=== PATIENT | male | born 1950 | race Caucasian/White ===

== ENCOUNTER 2018-02-14 08:44 | Emergency (ER) | payer OTHER ==
[2018-02-14] MEDS: KETOROLAC 15 MG INJ IV (10:30)
[2018-02-14] MEDS: ONDANSETRON 4 MG INJ IV (10:30)
[2018-02-14 10:31] LABS: ADD MAN DIFF? NO
[2018-02-14] MEDS: morphine 4 MG/ML VIAL IV (10:31)
[2018-02-14] MEDS: SOD CHLORIDE 0.9% 1,000 ML IV (10:31)
[2018-02-14 10:35] LABS: WHITE BLOOD COUNT 5.8 10^3/ul (4.8-10.8)
[2018-02-14 10:35] LABS: BASOPHIL # 0.1 10^3/ul (0.0-0.1); BASOPHILS % 0.9 % (0.0-2.0); EOSINOPHILS # 0.1 10^3/ul (0.0-0.5); EOSINOPHILS % 1.4 % (0.0-7.0); HEMATOCRIT 47.4 % (42.0-52.0); HEMOGLOBIN 16.4 g/dl (14.0-18.0); LYMPHOCYTES # 1.1 10^3/ul (0.8-2.9); MEAN CORPUSCULAR HEMOGLOBIN 28.4 pg (29.0-33.0); MEAN CORPUSCULAR HGB CONC 34.6 g/dl (32.0-37.0); MEAN CORPUSCULAR VOLUME 82.1 fl (82.0-101.0); MEAN PLATELET VOLUME 10.7 fl (7.4-10.4); MONOCYTE # 0.6 10^3/ul (0.3-0.9); MONOCYTES % 10.6 % (0.0-11.0); NEUTROPHILS % 68.9 % (39.0-77.0); PLATELET COUNT 126 10^3/UL (140-415); POSITIVE DIFF @See below; RED BLOOD COUNT 5.77 10^6/ul (4.70-6.10); RED CELL DISTRIBUTION WIDTH 13.1 % (11.5-14.5)
[2018-02-14 10:37] LABS: ADD UMIC NO; UR ASCORBIC ACID NEGATIVE (NEGATIVE); UR BILIRUBIN (Dip) NEGATIVE (NEGATIVE); UR BLOOD (Dip) NEGATIVE (NEGATIVE); UR CLARITY CLEAR (CLEAR); UR COLOR YELLOW (YELLOW); UR GLUCOSE (Dip) 3+ mg/dL (NEGATIVE); UR KETONES (Dip) NEGATIVE (NEGATIVE); UR LEUKOCYTE ESTERASE (Dip) NEGATIVE Leu/ul (NEGATIVE); UR NITRITE (Dip) NEGATIVE (NEGATIVE); UR SPECIFIC GRAVITY (Dip) 1.022 (1.003-1.030); UR TOTAL PROTEIN (Dip) NEGATIVE (NEGATIVE); UR UROBILINOGEN (Dip) NEGATIVE (NEGATIVE)
[2018-02-14 10:53] LABS: ALANINE AMINOTRANSFERASE 33 IU/L (13-69); ALBUMIN 4.1 g/dl (3.3-4.9); ALBUMIN/GLOBULIN RATIO 1.17; ALKALINE PHOSPHATASE 142 IU/L (42-121); ANION GAP 18 (8-16); ASPARTATE AMINO TRANSFERASE 23 IU/L (15-46); BILIRUBIN,INDIRECT 0.7 mg/dl (0-1.1); BILIRUBIN,TOTAL 0.7 mg/dl (0.2-1.3); BLOOD UREA NITROGEN 11 mg/dl (7-20); CARBON DIOXIDE 26 mmol/L (21-31); CHLORIDE 103 mmol/L (97-110); CREATININE 0.67 mg/dl (0.61-1.24); GLUCOSE 232 mg/dl (70-220); LIPASE 57 U/L (23-300); POTASSIUM 4.6 mmol/L (3.5-5.1); SODIUM 142 mmol/L (135-144); TOTAL PROTEIN 7.6 g/dl (6.1-8.1)
[2018-02-14] MEDS ORDERED: LORAZEPAM 2 MG INJ (12:49)
[2018-02-14] MEDS: LORAZEPAM 2 MG INJ IV (13:00)
== END 2018-02-14 15:00 | disposition home or self-care (01) ==
LOC: E/R 08:44
DX: K59.00 Constipation, unspecified (principal); I10 Essential (primary) hypertension; E11.9 Type 2 diabetes mellitus without complications; Z79.84 Long term (current) use of oral hypoglycemic drugs
CPT/HCPCS: 36415; 74176; 80053; 81003; 83690; 85025; 87086; 96374; 96375; 99285-25

== ENCOUNTER 2018-04-09 15:38 | Emergency (ER) | payer SELFPAY, OTHER | END 2018-04-09 19:51 | disposition left against medical advice (07) | LOC: E/R 15:38 | DX: Z53.21 Procedure and treatment not carried out due to patient leaving prior to being seen by health care provider (principal) ==

== ENCOUNTER 2019-03-25 15:45 | Emergency (ER) | payer SELFPAY, OTHER | END 2019-03-25 19:14 | disposition left against medical advice (07) | LOC: E/R 15:45 | DX: Z53.21 Procedure and treatment not carried out due to patient leaving prior to being seen by health care provider (principal) | CPT/HCPCS: 93005 ==

== ENCOUNTER 2019-08-09 12:42 | Inpatient (IN) | payer OTHER ==
[2019-08-09] MEDS: CLOPIDOGREL 300 MG TAB PO (13:03)
[2019-08-09 13:07] LABS: ADD MAN DIFF? NO
[2019-08-09] MEDS: HEPARIN 1000 UNITS/ML 10 ML INJ IV (13:07)
[2019-08-09] MEDS: ASPIRIN 325 MG TAB PO (13:07)
[2019-08-09] MEDS: TICAGRELOR 90 MG TABLET PO (13:07)
[2019-08-09 13:09] LABS: BASOPHIL # 0.1 10^3/ul (0.0-0.1); BASOPHILS % 0.5 % (0.0-2.0); EOSINOPHILS # 0.1 10^3/ul (0.0-0.5); EOSINOPHILS % 0.6 % (0.0-7.0); HEMATOCRIT 47.8 % (42.0-52.0); HEMOGLOBIN 15.6 g/dl (14.0-18.0); LYMPHOCYTES # 2.1 10^3/ul (0.8-2.9); LYMPHOCYTES % 17.7 % (15.0-51.0); MEAN CORPUSCULAR HEMOGLOBIN 28.3 pg (29.0-33.0); MEAN CORPUSCULAR HGB CONC 32.6 g/dl (32.0-37.0); MEAN CORPUSCULAR VOLUME 86.6 fl (82.0-101.0); MEAN PLATELET VOLUME 11.2 fl (7.4-10.4); MONOCYTES % 8.6 % (0.0-11.0); NEUTROPHIL # 8.4 10^3/ul (1.6-7.5); NEUTROPHILS % 72.2 % (39.0-77.0); PLATELET COUNT 141 10^3/UL (140-415); RED BLOOD COUNT 5.52 10^6/ul (4.70-6.10)
[2019-08-09 13:09] LABS: WHITE BLOOD COUNT 11.6 10^3/ul (4.8-10.8)
[2019-08-09] MEDS: HEPARIN 25000 UNITS/250 ML 250 ML IV (13:18)
[2019-08-09] MEDS ORDERED: HEPARIN 1000 UNITS/ML 10 ML INJ (13:19)
[2019-08-09] MEDS ORDERED: FENTAnyl 50 MCG/ML VIAL (13:19)
[2019-08-09] MEDS ORDERED: IODIXANOL LOCM 100 ML BTL (13:19)
[2019-08-09] MEDS ORDERED: MIDAZOLAM 1 MG/ML 2 ML INJ (13:19)
[2019-08-09] MEDS ORDERED: VERAPAMIL 5 MG INJ (13:19)
[2019-08-09] MEDS ORDERED: NITROGLYCERIN (IC) 100 MCG/ML INJ (13:19)
[2019-08-09] MEDS ORDERED: NORepinephrine 8MG/250 ML (PMX 250 ML (13:19)
[2019-08-09] MEDS ORDERED: LIDOCAINE 1% (MDV) 20 ML INJ (13:19)
[2019-08-09] MEDS ORDERED: HEPARIN 25000 UNITS/250 ML 250 ML IV (13:30)
[2019-08-09] MEDS ORDERED: HEPARIN 1000 UNITS/ML 10 ML INJ IV (13:30)
[2019-08-09 13:59] LABS: ANION GAP 7 (5-13); BLOOD UREA NITROGEN 20 mg/dl (7-20); CARBON DIOXIDE 23 mmol/L (21-31); CHLORIDE 106 mmol/L (97-110); CREATININE 0.89 mg/dl (0.61-1.24); Estimated GFR > 60 mL/min (>60); GLUCOSE 220 mg/dl (70-220); POTASSIUM 4.3 mmol/L (3.5-5.1); SODIUM 136 mmol/L (135-144)
[2019-08-09] MEDS ORDERED: EPINEPHrine 0.1 MG/ML SYG ×2 (14:06→15:37)
[2019-08-09] MEDS ORDERED: BIVALIRUDIN 250MG /NS 50 ML 50 ML IVPB (14:06)
[2019-08-09] MEDS ORDERED: DOPamine-D5W 1.6 MG/ML 250 ML (14:06)
[2019-08-09] MEDS ORDERED: ONDANSETRON 4 MG INJ (14:53)
[2019-08-09] MEDS ORDERED: FUROSEMIDE 40 MG INJ (14:55)
[2019-08-09] MEDS: LACTATED RINGER'S 500 ML IV (17:00)
[2019-08-09] MEDS: EPTIFIBATIDE 100 ML IV (17:30)
[2019-08-09 17:32] LABS: MODE NASAL CANNULA; MetHgb Venous 0.4 %; Sample Type Blood venous; Site VENOUS LINE; Venous COHb 0.3 %; Venous Fraction OxyHgb 73.3 %; Venous Oxygen Sat 73.8 mmHG (55.0-75.0); Venous Total Hemglobin 15.7 g/dl
[2019-08-09] MEDS ORDERED: GLUCOSE GEL 15 GRAM TUBE BUCCAL (18:00)
[2019-08-09] MEDS ORDERED: DEXTROSE 50% 50 ML SYRINGE IV ×2 (18:00)
[2019-08-09] MEDS ORDERED: GLUCOSE GEL 15 GRAM TUBE PO ×2 (18:00)
[2019-08-09] MEDS ORDERED: GLUCAGON 1 MG INJ IM (18:00)
[2019-08-09] MEDS: EPINEPHrine 4 MG in SOD CHLORIDE 0.9% 246 ML IV (18:21)
[2019-08-09] MEDS: NORepinephrine 8MG/250 ML (PMX 250 ML IV (19:14)
[2019-08-09 19:21] LABS: CREATINE KINASE 1418 IU/L (23-200)
[2019-08-09 19:33] LABS: CK INDEX 5.2
[2019-08-09] MEDS ORDERED: BISACODYL (EC) 5 MG TAB PO (20:30)
[2019-08-09] MEDS ORDERED: NITROGLYCERIN (SL) 0.4 MG TAB SL (20:30)
[2019-08-09] MEDS ORDERED: DOCUSATE SODIUM 100 MG CAP PO (20:30)
[2019-08-09] MEDS ORDERED: NACL 0.9% 3 ML SYG IV (20:30)
[2019-08-09] MEDS ORDERED: MAGNESIUM HYDROXIDE 30ML CUP PO (20:30)
[2019-08-09] MEDS ORDERED: BISACODYL 10 MG SUPP PR (20:30)
[2019-08-09] MEDS ORDERED: ONDANSETRON 4 MG INJ IV (20:30)
[2019-08-09] MEDS: INSULIN ASPART [NOVOLOG] 3 ML PEN SC (21:04)
[2019-08-09] MEDS: FAMOTIDINE 20 MG INJ IV (21:05)
[2019-08-09] MEDS: LORAZEPAM 2 MG INJ IV (21:05)
[2019-08-09] MEDS: ATORVASTATIN 80 MG TAB PO (21:05)
[2019-08-09] MEDS: morphine 2 MG INJ IV (23:42)
[2019-08-09] MEDS: traZODone 50 MG TAB PO (23:43)
[2019-08-10] MEDS: PHENYLephrine 40 MG in DEXTROSE 5% 246 ML IV ×3 (00:25→17:28)
[2019-08-10 01:26] LABS: CREATINE KINASE 1476 IU/L (23-200)
[2019-08-10 01:36] LABS: CK INDEX 4.4
[2019-08-10] MEDS: INSULIN ASPART [NOVOLOG] 3 ML PEN SC ×3 (01:59→09:00)
[2019-08-10] MEDS: ACCU-CHEK XX (02:00)
[2019-08-10] MEDS: EPTIFIBATIDE 100 ML IV (02:19)
[2019-08-10 04:45] LABS: ADD MAN DIFF? NO
[2019-08-10 04:46] LABS: WHITE BLOOD COUNT 14.8 10^3/ul (4.8-10.8)
[2019-08-10 04:46] LABS: ABNORMAL IP MESSAGE 1; BASOPHIL # 0.1 10^3/ul (0.0-0.1); BASOPHILS % 0.3 % (0.0-2.0); HEMATOCRIT 40.8 % (42.0-52.0); HEMOGLOBIN 13.6 g/dl (14.0-18.0); LYMPHOCYTES # 1.5 10^3/ul (0.8-2.9); LYMPHOCYTES % 10.2 % (15.0-51.0); MEAN CORPUSCULAR HEMOGLOBIN 28.2 pg (29.0-33.0); MEAN CORPUSCULAR HGB CONC 33.3 g/dl (32.0-37.0); MEAN CORPUSCULAR VOLUME 84.5 fl (82.0-101.0); MEAN PLATELET VOLUME 11.5 fl (7.4-10.4); MONOCYTE # 1.8 10^3/ul (0.3-0.9); MONOCYTES % 12.2 % (0.0-11.0); NEUTROPHIL # 11.4 10^3/ul (1.6-7.5); NEUTROPHILS % 76.9 % (39.0-77.0); PLATELET COUNT 173 10^3/UL (140-415); POSITIVE DIFF @See below; RED BLOOD COUNT 4.83 10^6/ul (4.70-6.10); RED CELL DISTRIBUTION WIDTH 13.5 % (11.5-14.5)
[2019-08-10 04:49] LABS: AADO2 Arterial 175.7 mmHg (7.0-24.0); Arterial Blood Gas Oxygen Sat 92.8 mmHG (95.0-98.0); Arterial COHb 0.2 % (0.0-3.0); Arterial Fraction of Oxyhgb 92.3 % (93.0-99.0); Arterial HCO3 19.1 mmol/L (22.0-26.0); Arterial MetHb 0.3 % (0.0-1.5); Arterial pCO2 30.2 mmhg (35-45); MODE NASAL CANNULA; Site A-Line
[2019-08-10 05:03] LABS: CHOL/HDL RATIO 4.6 RATIO; HDL CHOLESTEROL 28 mg/dl (31-75); LDL CHOLESTEROL,CALCULATED 85 mg/dl; TRIGLYCERIDES 90 mg/dl (0-149)
[2019-08-10 05:03] LABS: CHOLESTEROL 131 mg/dl (100-200)
[2019-08-10 05:04] LABS: ANION GAP 7 (5-13); BLOOD UREA NITROGEN 20 mg/dl (7-20); CALCIUM 8.4 mg/dl (8.4-10.2); CARBON DIOXIDE 23 mmol/L (21-31); CHLORIDE 104 mmol/L (97-110); CREATININE 0.87 mg/dl (0.61-1.24); Estimated GFR > 60 mL/min (>60); GLUCOSE 272 mg/dl (70-220); POTASSIUM 4.3 mmol/L (3.5-5.1); SODIUM 134 mmol/L (135-144)
[2019-08-10 05:08] LABS: LACTIC ACID 2.2 mmol/L (0.5-2.0)
[2019-08-10] MEDS: CEFAZOLIN 2 GM/50 ML (PMX) 50 ML IVPB (06:30)
[2019-08-10 07:13] LABS: MAGNESIUM 1.7 mg/dl (1.7-2.5)
[2019-08-10] MEDS ORDERED: ACCU-CHEK XX ×2 (09:00→09:30)
[2019-08-10] MEDS ORDERED: DEXTROSE 50% 50 ML SYRINGE IV ×4 (09:00→09:30)
[2019-08-10] MEDS ORDERED: INSULIN HUMAN REGULAR 100 UNIT in SOD CHLORIDE 0.9% 99 ML IV (09:00)
[2019-08-10] MEDS: FAMOTIDINE 20 MG INJ IV ×2 (09:05→20:45)
[2019-08-10] MEDS: ACETAMINOPHEN 325 MG TAB PO (10:00)
[2019-08-10] MEDS: INSULIN HUMAN REGULAR 100 UNIT in SOD CHLORIDE 0.9% 99 ML IV (10:19)
[2019-08-10] MEDS: ASPIRIN (EC) 81 MG TAB PO (13:18)
[2019-08-10] MEDS: GUAIFENESIN/CODEINE 5ML CUP PO (20:07)
[2019-08-10] MEDS: ATORVASTATIN 80 MG TAB PO (20:46)
[2019-08-11] MEDS: traZODone 50 MG TAB PO (02:35)
[2019-08-11 05:07] LABS: AADO2 Arterial 140.5 mmHg (7.0-24.0); Arterial Base Excess -4.9 mmol/L (-3.0-3); Arterial Blood Gas Oxygen Sat 92.3 mmHG (95.0-98.0); Arterial COHb 0.3 % (0.0-3.0); Arterial Fraction of Oxyhgb 91.7 % (93.0-99.0); Arterial HCO3 17.8 mmol/L (22.0-26.0); Arterial MetHb 0.4 % (0.0-1.5); Arterial pCO2 26.7 mmhg (35-45); MODE NASAL CANNULA; Site A-Line
[2019-08-11 05:18] LABS: ADD MAN DIFF? NO
[2019-08-11 05:24] LABS: ABNORMAL IP MESSAGE 1; BASOPHIL # 0.1 10^3/ul (0.0-0.1); BASOPHILS % 0.4 % (0.0-2.0); EOSINOPHILS % 0.1 % (0.0-7.0); HEMATOCRIT 38.7 % (42.0-52.0); HEMOGLOBIN 12.6 g/dl (14.0-18.0); LYMPHOCYTES # 1.5 10^3/ul (0.8-2.9); LYMPHOCYTES % 9.4 % (15.0-51.0); MEAN CORPUSCULAR HEMOGLOBIN 28.2 pg (29.0-33.0); MEAN CORPUSCULAR HGB CONC 32.6 g/dl (32.0-37.0); MEAN CORPUSCULAR VOLUME 86.6 fl (82.0-101.0); MEAN PLATELET VOLUME 12.1 fl (7.4-10.4); MONOCYTE # 1.7 10^3/ul (0.3-0.9); MONOCYTES % 10.8 % (0.0-11.0); NEUTROPHIL # 12.6 10^3/ul (1.6-7.5); NEUTROPHILS % 78.9 % (39.0-77.0); PLATELET COUNT 129 10^3/UL (140-415); POSITIVE DIFF @See below; RED BLOOD COUNT 4.47 10^6/ul (4.70-6.10); RED CELL DISTRIBUTION WIDTH 13.8 % (11.5-14.5)
[2019-08-11 05:31] LABS: LACTIC ACID 1.6 mmol/L (0.5-2.0)
[2019-08-11 05:52] LABS: ANION GAP 6 (5-13); BLOOD UREA NITROGEN 18 mg/dl (7-20); CALCIUM 8.2 mg/dl (8.4-10.2); CARBON DIOXIDE 24 mmol/L (21-31); CHLORIDE 104 mmol/L (97-110); CREATININE 0.72 mg/dl (0.61-1.24); Estimated GFR > 60 mL/min (>60); GLUCOSE 124 mg/dl (70-220); POTASSIUM 4.1 mmol/L (3.5-5.1); SODIUM 134 mmol/L (135-144)
[2019-08-11 06:15] LABS: PARTIAL THROMBOPLASTIN TIME 34.7 Sec (23.0-35.0); PROTIME 15.3 Sec (11.9-14.9); PT RATIO 1.2
[2019-08-11] MEDS: FAMOTIDINE 20 MG INJ IV (08:59)
[2019-08-11] MEDS: PHENYLephrine 40 MG in DEXTROSE 5% 246 ML IV (12:31)
[2019-08-11] MEDS: VANCOMYCIN 1 GM INJ (14:18)
[2019-08-11] MEDS: HEPARIN 1000 UNITS/ML 10 ML INJ (14:19)
[2019-08-11] MEDS: PAPAVERINE 60 MG INJ (14:19)
[2019-08-11] MEDS ORDERED: MILRINONE LACTATE 20 MG/D5W 100 ML BAG (15:31)
[2019-08-11] MEDS ORDERED: MIDAZOLAM 5 ML ×3 (15:31→19:12)
[2019-08-11] MEDS ORDERED: NITROGLYCERIN 50 MG/D5W 250 ML BTL (15:31)
[2019-08-11] MEDS ORDERED: DOPamine-D5W 1.6 MG/ML 250 ML (15:31)
[2019-08-11] MEDS ORDERED: POTASSIUM CHLORIDE 40 MEQ INJ (15:40)
[2019-08-11] MEDS ORDERED: MAGNESIUM SULFATE (MG) 50% 10 ML INJ (15:40)
[2019-08-11] MEDS ORDERED: PHENYLephrine 10 MG INJ (15:41)
[2019-08-11] MEDS ORDERED: NA BICARBONATE 8.4% 50 ML SYG ×2 (15:41→21:49)
[2019-08-11] MEDS ORDERED: AMINOCAPROIC ACID 5 GM INJ ×3 (15:41→18:43)
[2019-08-11] MEDS ORDERED: HEPARIN 1000 UNITS/ML 10 ML INJ ×2 (15:41→16:40)
[2019-08-11] MEDS ORDERED: CA CHLORIDE 10% 10 ML SYRINGE (15:41)
[2019-08-11] MEDS ORDERED: LIDOCAINE 100 MG SYRINGE (15:41)
[2019-08-11] MEDS ORDERED: ALBUMIN HUMAN 25% 100 ML (15:42)
[2019-08-11] MEDS ORDERED: MANNITOL 20% 0 ML (15:42)
[2019-08-11] MEDS: ASPIRIN 600 MG SUPP PR (16:00)
[2019-08-11] MEDS ORDERED: NORepinephrine 8MG/250 ML (PMX 250 ML IV (16:00)
[2019-08-11] MEDS ORDERED: PHENYLephrine 20MG IN 250 ML 250 ML IV ×2 (16:00→21:30)
[2019-08-11] MEDS: HEPARIN (10000 UNITS/ML) 10,000 UNIT, MILRINONE LACTATE 10 MG in SOD CHLORIDE 0.9% 1,00... SC (16:00)
[2019-08-11] MEDS ORDERED: CEFAZOLIN 1 GM INJ ×2 (16:21→18:42)
[2019-08-11] MEDS ORDERED: FUROSEMIDE 10 ML (17:05)
[2019-08-11] MEDS ORDERED: LIDOCAINE 2% (SDV) 5 ML INJ (18:42)
[2019-08-11] MEDS ORDERED: ROCURONIUM 50 MG INJ (18:42)
[2019-08-11] MEDS ORDERED: ETOMIDATE 20 MG INJ (18:42)
[2019-08-11] MEDS ORDERED: PROTAMINE 250 MG INJ (18:51)
[2019-08-11 18:59] LABS: TYPE AND SCREEN 1
[2019-08-11 19:18] LABS: IMMEDIATE SPIN CROSSMATCH 1
[2019-08-11] MEDS ORDERED: OXYCODONE/ACETAMINOPHEN (5/325) TAB PO ×2 (20:00)
[2019-08-11] MEDS: ACCU-CHEK XX ×4 (20:00→23:00)
[2019-08-11] MEDS ORDERED: INSULIN HUMAN REGULAR 100 UNIT in SOD CHLORIDE 0.9% 99 ML IV (20:00)
[2019-08-11] MEDS ORDERED: DEXTROSE 50% 50 ML SYRINGE IV ×2 (20:00)
[2019-08-11] MEDS ORDERED: FAMOTIDINE 20 MG INJ IV (20:00)
[2019-08-11] MEDS ORDERED: ACETAMINOPHEN 325 MG TAB PO (20:00)
[2019-08-11] MEDS ORDERED: CEFAZOLIN 1 GM/50 ML (PMX) 50 ML IVPB (20:00)
[2019-08-11] MEDS: FACTOR VIIA 1 MG VIAL IV (20:00)
[2019-08-11] MEDS ORDERED: HYDROmorphONE 0.5 MG/0.5 ML SYG IV ×2 (20:00)
[2019-08-11] MEDS ORDERED: NITROGLYCERIN 50 MG/D5W (PMX) 250 ML IV ×2 (20:00→21:00)
[2019-08-11] MEDS ORDERED: ONDANSETRON 4 MG INJ IV ×2 (20:00→21:00)
[2019-08-11] MEDS ORDERED: MAGNESIUM SULFATE 1 GM/D5W 100 ML IVPB (20:00)
[2019-08-11 20:42] LABS: ADD MAN DIFF? NO
[2019-08-11] MEDS: MILRINONE LACTATE 2 MG in SOD CHLORIDE 0.9% 50 ML IV (20:43)
[2019-08-11 20:44] LABS: BASOPHIL # 0.1 10^3/ul (0.0-0.1); BASOPHILS % 0.3 % (0.0-2.0); EOSINOPHILS # 0.1 10^3/ul (0.0-0.5); EOSINOPHILS % 0.4 % (0.0-7.0); HEMATOCRIT 23.5 % (42.0-52.0); HEMOGLOBIN 7.4 g/dl (14.0-18.0); LYMPHOCYTES # 2.3 10^3/ul (0.8-2.9); LYMPHOCYTES % 11.4 % (15.0-51.0); MEAN CORPUSCULAR HEMOGLOBIN 28.7 pg (29.0-33.0); MEAN CORPUSCULAR HGB CONC 31.5 g/dl (32.0-37.0); MEAN CORPUSCULAR VOLUME 91.1 fl (82.0-101.0); MEAN PLATELET VOLUME 10.5 fl (7.4-10.4); MONOCYTE # 1.4 10^3/ul (0.3-0.9); MONOCYTES % 6.7 % (0.0-11.0); NEUTROPHIL # 16.3 10^3/ul (1.6-7.5); NEUTROPHILS % 80.3 % (39.0-77.0); PLATELET COUNT 108 10^3/UL (140-415); RED BLOOD COUNT 2.58 10^6/ul (4.70-6.10); RED CELL DISTRIBUTION WIDTH 13.7 % (11.5-14.5)
[2019-08-11 20:44] LABS: WHITE BLOOD COUNT 20.3 10^3/ul (4.8-10.8)
[2019-08-11] MEDS: PHENYLephrine 20 MG in DEXTROSE 5% 250 ML IV (20:45)
[2019-08-11 20:57] LABS: AADO2 Arterial 310.6 mmHg (7.0-24.0); Arterial Base Excess -8.7 mmol/L (-3.0-3); Arterial Blood Gas Oxygen Sat 91.1 mmHG (95.0-98.0); Arterial COHb 0.3 % (0.0-3.0); Arterial Fraction of Oxyhgb 90.6 % (93.0-99.0); Arterial HCO3 17.9 mmol/L (22.0-26.0); Arterial MetHb 0.2 % (0.0-1.5); Arterial pCO2 41.5 mmhg (35-45); MODE VENT - AC; Site A-Line
[2019-08-11 20:59] LABS: AADO2 Mixed Venous 343.3 mmHg; MODE VENT - AC; MetHgb Mixed Venous 0.6 %; Mixed Venous Base Excess -7.7 mmol/L; Mixed Venous COHb 0.3 %; Mixed Venous Fraction OxyHgb 55.6 %; Mixed Venous Oxygen Sat 56.1 mmHG (65.0-75.0); Mixed Venous Total Hemglobin 8.2 g/dl; Sample Type BLMV; Site VENOUS LINE
[2019-08-11] MEDS ORDERED: EPINEPHrine 4 MG in DEXTROSE 5% 246 ML IV (21:00)
[2019-08-11] MEDS ORDERED: DIPHENHYDRAMINE 50 MG INJ IV (21:00)
[2019-08-11] MEDS ORDERED: morphine 2 MG INJ IV ×2 (21:00)
[2019-08-11] MEDS ORDERED: DOPamine-D5W 1.6 MG/ML 250 ML IV (21:00)
[2019-08-11] MEDS ORDERED: MEPERIDINE 25 MG INJ IV (21:00)
[2019-08-11] MEDS ORDERED: METOCLOPRAMIDE 10 MG INJ IV (21:00)
[2019-08-11] MEDS ORDERED: LORAZEPAM 2 MG INJ IV (21:00)
[2019-08-11 21:01] LABS: IMMEDIATE SPIN CROSSMATCH 1 6
[2019-08-11] MEDS ORDERED: ALBUMIN HUMAN 5% 250 ML (21:02)
[2019-08-11 21:05] LABS: ANION GAP 9 (5-13); BLOOD UREA NITROGEN 16 mg/dl (7-20); CALCIUM 7.1 mg/dl (8.4-10.2); CARBON DIOXIDE 20 mmol/L (21-31); CREATININE 0.77 mg/dl (0.61-1.24); Estimated GFR > 60 mL/min (>60); GLUCOSE 156 mg/dl (70-220); MAGNESIUM 2.6 mg/dl (1.7-2.5); POTASSIUM 3.6 mmol/L (3.5-5.1); SODIUM 140 mmol/L (135-144)
[2019-08-11 21:06] LABS: CHLORIDE 111 mmol/L (97-110)
[2019-08-11 21:08] LABS: PARTIAL THROMBOPLASTIN TIME 37.2 Sec (23.0-35.0); PROTIME 24.5 Sec (11.9-14.9); PT RATIO 1.9
[2019-08-11 21:09] LABS: PARTIAL THROMBOPLASTIN TIME 38.3 Sec (23.0-35.0)
[2019-08-11] MEDS: PROPOFOL 100 ML IV (21:30)
[2019-08-11] MEDS: ALBUMIN HUMAN 5% 250 ML IV ×2 (21:31→23:01)
[2019-08-11] MEDS ORDERED: MILRINONE 20MG in D5W 100 ML IV (21:32)
[2019-08-11] MEDS: EPINEPHrine 4 MG in DEXTROSE 5% 246 ML IV ×2 (21:39→23:12)
[2019-08-11 22:07] LABS: AADO2 Arterial 362.2 mmHg (7.0-24.0); Arterial Base Excess -17.1 mmol/L (-3.0-3); Arterial COHb 0.2 % (0.0-3.0); Arterial Fraction of Oxyhgb 98.5 % (93.0-99.0); Arterial HCO3 9.6 mmol/L (22.0-26.0); Arterial MetHb 0.3 % (0.0-1.5); Arterial pCO2 25.8 mmhg (35-45); MODE AMBU BAG; Site A-Line
[2019-08-11 22:31] LABS: AADO2 Arterial 509.2 mmHg (7.0-24.0); Arterial Base Excess -13.8 mmol/L (-3.0-3); Arterial Blood Gas Oxygen Sat 98.1 mmHG (95.0-98.0); Arterial COHb 0.2 % (0.0-3.0); Arterial Fraction of Oxyhgb 97.4 % (93.0-99.0); Arterial HCO3 12.9 mmol/L (22.0-26.0); Arterial MetHb 0.5 % (0.0-1.5); Arterial pCO2 32.9 mmhg (35-45); MODE VENT - AC; Site A-Line
[2019-08-11 22:51] LABS: ADD MAN DIFF? NO
[2019-08-11 22:54] LABS: WHITE BLOOD COUNT 14.6 10^3/ul (4.8-10.8)
[2019-08-11 22:54] LABS: ABNORMAL IP MESSAGE 1; BASOPHILS % 0.1 % (0.0-2.0); EOSINOPHILS % 0.2 % (0.0-7.0); HEMATOCRIT 22.4 % (42.0-52.0); LYMPHOCYTES # 2.1 10^3/ul (0.8-2.9); LYMPHOCYTES % 14.2 % (15.0-51.0); MEAN CORPUSCULAR HEMOGLOBIN 28.6 pg (29.0-33.0); MEAN CORPUSCULAR HGB CONC 31.3 g/dl (32.0-37.0); MEAN CORPUSCULAR VOLUME 91.4 fl (82.0-101.0); MEAN PLATELET VOLUME 10.7 fl (7.4-10.4); MONOCYTE # 1.4 10^3/ul (0.3-0.9); MONOCYTES % 9.3 % (0.0-11.0); NEUTROPHIL # 10.9 10^3/ul (1.6-7.5); NEUTROPHILS % 74.6 % (39.0-77.0); PLATELET COUNT 87 10^3/UL (140-415); POSITIVE DIFF @See below; RED BLOOD COUNT 2.45 10^6/ul (4.70-6.10); RED CELL DISTRIBUTION WIDTH 13.8 % (11.5-14.5)
[2019-08-11] MEDS: POTASSIUM CHLORIDE 40 MEQ, CALCIUM CHLORIDE 10% 1 GM in DEXTROSE 5%-0.225% NACL 1,000 ML IV (22:58)
[2019-08-11] MEDS ORDERED: VANCOMYCIN IV PER PHARMACY XX (23:00)
[2019-08-11] MEDS: POTASSIUM CHLORIDE 50 ML IVPB ×2 (23:05→23:56)
[2019-08-11] MEDS: PHENYLephrine 80 MG in DEXTROSE 5% 242 ML IV (23:09)
[2019-08-11] MEDS: NORepinephrine 8MG/250 ML (PMX 250 ML IV (23:11)
[2019-08-11 23:13] LABS: ALANINE AMINOTRANSFERASE 267 IU/L (13-69); ALBUMIN 1.7 g/dl (3.3-4.9); ALKALINE PHOSPHATASE 35 IU/L (42-121); ANION GAP 15 (5-13); ASPARTATE AMINO TRANSFERASE 425 IU/L (15-46); BILIRUBIN,INDIRECT 1.1 mg/dl (0-1.1); BILIRUBIN,TOTAL 1.1 mg/dl (0.2-1.3); BLOOD UREA NITROGEN 15 mg/dl (7-20); CALCIUM 7.8 mg/dl (8.4-10.2); CARBON DIOXIDE 20 mmol/L (21-31); CHLORIDE 109 mmol/L (97-110); CREATININE 0.96 mg/dl (0.61-1.24); Estimated GFR > 60 mL/min (>60); GLUCOSE 198 mg/dl (70-220); MAGNESIUM 2.5 mg/dl (1.7-2.5); PHOSPHORUS 7.3 mg/dl (2.5-4.9); SODIUM 144 mmol/L (135-144); TOTAL PROTEIN 3.4 g/dl (6.1-8.1)
[2019-08-11] MEDS: CA CHLORIDE 10% 10 ML SYRINGE IV (23:14)
[2019-08-11 23:16] LABS: INR 2.47; PROTIME 26.8 Sec (11.9-14.9); PT RATIO 2.1
[2019-08-11 23:18] LABS: PARTIAL THROMBOPLASTIN TIME 55.2 Sec (23.0-35.0)
[2019-08-11 23:19] LABS: POTASSIUM 2.8 mmol/L (3.5-5.1)
[2019-08-11 23:23] LABS: AADO2 Arterial 581.6 mmHg (7.0-24.0); Arterial Base Excess -12.6 mmol/L (-3.0-3); Arterial Blood Gas Oxygen Sat 94.6 mmHG (95.0-98.0); Arterial COHb 0.1 % (0.0-3.0); Arterial Fraction of Oxyhgb 94.3 % (93.0-99.0); Arterial HCO3 14.6 mmol/L (22.0-26.0); Arterial MetHb 0.2 % (0.0-1.5); Arterial pCO2 38.7 mmhg (35-45); MODE VENT - AC; Site A-Line
[2019-08-11] MEDS: INSULIN HUMAN REGULAR 100 UNIT in SOD CHLORIDE 0.9% 99 ML IVPB (23:23)
[2019-08-11] MEDS: NA BICARBONATE 8.4% 50 ML SYG IV (23:24)
[2019-08-11] MEDS ORDERED: MEROPENEM 1 GM/50ML(PMX) 50 ML IVPB (23:25)
[2019-08-11] MEDS ORDERED: [UNRECOGNIZED DRUG - OTHER] IV (23:30)
[2019-08-11] MEDS ORDERED: POTASSIUM CHLORIDE IV (23:30)
[2019-08-11] MEDS ORDERED: CALCIUM CHLORIDE IV (23:30)
[2019-08-12] MEDS ORDERED: CA CHLORIDE 10% 10 ML SYRINGE
[2019-08-12] MEDS: ACCU-CHEK XX
[2019-08-12] MEDS ORDERED: NA BICARBONATE 8.4% 50 ML SYG ×2
[2019-08-12] MEDS ORDERED: EPINEPHrine 0.1 MG/ML SYG ×2
[2019-08-12] MEDS ORDERED: PIPER-TAZO 3.375 GM IV (PMX) 100 ML IVPB
[2019-08-12] MEDS ORDERED: SODIUM BICARBONATE (IV ADD) 150 MEQ in DEXTROSE 5% 1,000 ML IV
[2019-08-12] MEDS: [UNRECOGNIZED DRUG - OTHER] IV ×2 (00:01→01:02)
[2019-08-12] MEDS: CALCIUM CHLORIDE IV ×2 (00:01→01:02)
[2019-08-12] MEDS: POTASSIUM CHLORIDE IV ×2 (00:01→01:02)
[2019-08-12 00:15] LABS: MODE VENT - AC; MetHgb Mixed Venous 0.1 %; Mixed Venous Base Excess -14.4 mmol/L; Mixed Venous COHb 0.3 %; Mixed Venous Fraction OxyHgb 96.3 %; Mixed Venous Oxygen Sat 96.7 mmHG (65.0-75.0); Sample Type Blood venous; Site VENOUS LINE
[2019-08-12 00:38] LABS: HEMATOCRIT 24.2 % (42.0-52.0); HEMOGLOBIN 7.7 g/dl (14.0-18.0); IMMEDIATE SPIN CROSSMATCH 1
[2019-08-12] MEDS: VANCOMYCIN 1.5 GM/NS 250 ML 250 ML IVPB (00:56)
[2019-08-12] MEDS: VASOPRESSIN 60 UNIT in DEXTROSE 5% 57 ML IV (01:05)
[2019-08-12] MEDS ORDERED: SOD CHLORIDE 0.9% 250 ML IV (01:30)
[2019-08-12] MEDS ORDERED: ASPIRIN (EC) 81 MG TAB PO (09:00)
[2019-08-12] MEDS ORDERED: ASPIRIN 325 MG TAB PO (09:00)
[2019-08-12] MEDS ORDERED: ENOXAPARIN 40 MG/0.4 ML SYG SC (09:00)
[2019-08-12] MEDS ORDERED: VANCOMYCIN 1.25 GM/NS 250 ML 250 ML IVPB (13:00)
== END 2019-08-12 02:03 | disposition expired | DRG 232 ==
LOC: SDS 08-10 03:50 → ICU 08-10 03:51 → E/R 12:42 → SDS 15:38 → ICU 17:13 → SDS 13:32 → ICU 15:38
PROVIDERS: Internal Medicine
PROC: 02703ZZ Dilation of Coronary Artery, One Artery, Percutaneous Approach (ICD-10-PCS; 2019-08-09 13:30)
PROC: 0210099 Bypass Coronary Artery, One Artery from Left Internal Mammary with Autologous Venous Tissue, Open Approach (ICD-10-PCS; principal; 2019-08-09 13:34)
PROC: 021209W Bypass Coronary Artery, Three Arteries from Aorta with Autologous Venous Tissue, Open Approach (ICD-10-PCS; 2019-08-09 13:34)
PROC: 06BQ4ZZ Excision of Left Saphenous Vein, Percutaneous Endoscopic Approach (ICD-10-PCS; 2019-08-09 13:34)
PROC: 5A02210 Assistance with Cardiac Output using Balloon Pump, Continuous (ICD-10-PCS; 2019-08-09 13:34)
PROC: 5A1221Z Performance of Cardiac Output, Continuous (ICD-10-PCS; 2019-08-09 13:34)
PROC: 30233K1 Transfusion of Nonautologous Frozen Plasma into Peripheral Vein, Percutaneous Approach (ICD-10-PCS; 2019-08-09 13:34)
PROC: 30233N1 Transfusion of Nonautologous Red Blood Cells into Peripheral Vein, Percutaneous Approach (ICD-10-PCS; 2019-08-09 13:34)
PROC: 30233R1 Transfusion of Nonautologous Platelets into Peripheral Vein, Percutaneous Approach (ICD-10-PCS; 2019-08-09 13:34)
DX: I21.19 ST elevation (STEMI) myocardial infarction involving other coronary artery of inferior wall (principal); R57.0 Cardiogenic shock; I49.01 Ventricular fibrillation; I25.5 Ischemic cardiomyopathy; I25.10 Atherosclerotic heart disease of native coronary artery without angina pectoris; I25.119 Atherosclerotic heart disease of native coronary artery with unspecified angina pectoris; I10 Essential (primary) hypertension; E11.9 Type 2 diabetes mellitus without complications; I46.9 Cardiac arrest, cause unspecified; R40.2434 Glasgow coma scale score 3-8, 24 hours or more after hospital admission
CPT/HCPCS: 36415; 36430; 36592; 36600; 71045; 80048; 80053; 80061; 82550; 82553; 82803; 82962; 83036; 83605; 83735; 84100; 84484; 85014; 85018; 85025; 85378; 85610; 85730; 86644; 86850; 86900; 86901; 86920; 87081; 92920; 92950; 93005; 93306; 93308; 93312; 93325; 93458; 93880; 94002; 94770; 96374; 99285-25